=== PATIENT | female | born 1980 | race American Indian/Alaskan Native ===

== ENCOUNTER 2017-08-18 21:36 | Inpatient (IN) | payer OTHER ==
[2017-08-18 21:57] VITALS: BMI 36.7
[2017-08-18] MEDS ORDERED: Sodium Chloride 0.9% 1,000 ML IV STA (22:39)
[2017-08-18 23:19] LABS: URINE BILIRUBIN NEGATIVE (NEGATIVE); URINE BLOOD NEGATIVE (NEGATIVE); URINE GLUCOSE (UA) >=1000 mg/dL (NEGATIVE); URINE LEUKOCYTE ESTERASE NEGATIVE Leu/uL (NEGATIVE); URINE PROTEIN NEGATIVE mg/dL (<30 mg/dL); URINE UROBILINOGEN 0.2 E.U./dL (<1 E.U./dL)
[2017-08-18 23:24] LABS: URINE APPEARANCE CLEAR (CLEAR); URINE COLOR YELLOW (YELLOW)
--- NOTE | 2017-08-18 23:27 | ED PDOC ---
"Arrival/HPI - General Chief Complaint: Back Pain Time Seen by Provider: 08/18/17 22:38 Historian: Patient - History of Present Illness Narrative History of Present Illness (Text): 08/18/17 23:24 36yr old female presents today with left sided abdominal pain and back pain. pt states she was seen at urgent care 1 week ago with left flank pain and diagnosed with UTI. pt states she has been on macrobid without improvement. pt states over the past few days she has had increased pain to the left lower back and since last night developed pain to the left lower abdomen/pelvic region. pt denies dysuria, urinary frequency. no n/v/d/c. no dizziness or weakness. no cp or sob. pt denies vaginal discharge or bleeding. no other complaints. Past Medical History - Provider Review Nursing Documentation Reviewed: Yes - Travel History Have you recently traveled outside [place] w/in the past 3 mons?: No - Tetanus Immunization Tetanus Immunization: Unknown - Psychiatric Hx Substance Use: No - Surgical History Hx Eye Surgery: Yes Family/Social History - Physician Review Nursing Documentation Reviewed: Yes Family/Social History: Unknown Family HX Smoking Status: Never Smoked Hx Alcohol Use: Yes Frequency of alcohol use: Socially Hx Substance Use: No Allergies/Home Meds Allergies/Adverse Reactions: Allergies No Known Allergies Allergy (Verified 08/18/17 22:03) Home Medications: Home Meds Medication Instructions Recorded Confirmed No Known Home Med 08/18/17 08/18/17 Review of Systems - Review of Systems Constitutional: absent: Fatigue, Fevers Respiratory: absent: SOB, Cough Cardiovascular: absent: Chest Pain, Palpitations Gastrointestinal: Abdominal Pain. absent: Constipation, Diarrhea, Nausea, Vomiting Genitourinary Female: absent: Dysuria, Frequency, Hematuria, Vaginal Bleeding, Vaginal Discharge Musculoskeletal: Back Pain. absent: Arthralgias, Neck Pain Skin: absent: Rash, Pruritis Neurological: absent: Headache, Dizziness Psychiatric: absent: Anxiety, Depression Physical Exam Vital Signs Reviewed: Yes Vital Signs Temp Pulse Resp BP Pulse Ox 08/18/17 23:57 98.2 F 83 18 152/97 H 99 08/18/17 22:03 98.2 F 84 18 132/93 H 96 Temperature: Afebrile Blood Pressure: Normal Pulse: Regular Respiratory Rate: Normal Appearance: Positive for: Well-Appearing, Non-Toxic, Comfortable Pain Distress: None Mental Status: Positive for: Alert and Oriented X 3 - Systems Exam Head: Present: Atraumatic Mouth: Present: Moist Mucous Membranes Neck: Present: Normal Range of Motion Respiratory/Chest: Present: Clear to Auscultation, Good Air Exchange. No: Respiratory Distress, Accessory Muscle Use Cardiovascular: Present: Regular Rate and Rhythm, Normal S1, S2. No: Murmurs Abdomen: Present: Tenderness (minimal llq tenderness/ + left lower pelvic tenderness), Normal Bowel Sounds. No: Distention, Peritoneal Signs, Rebound, Guarding Back: Present: Normal Inspection. No: CVA Tenderness, Midline Tenderness, Paraspinal Tenderness Upper Extremity: Present: Normal ROM Lower Extremity: Present: Normal ROM Neurological: Present: GCS=15, Speech Normal Skin: Present: Warm, Dry, Normal Color. No: Rashes Psychiatric: Present: Alert, Oriented x 3 Medical Decision Making ED Course and Treatment: 08/18/17 23:27 Patient is nontoxic well appearing with stable vital signs presenting with left sided abdominal pain and back pain CBC wnl CMP glucose; 403 Lipase wnl Urinalysis + glucose UltrasoundFINDINGS: Uterus/cervix: Uterus measures 8.0 x 3.4 x 4.8 cm in size. No myometrial mass. Probable nabothian cysts. Endometrium: 0.7 cm in thickness. Right ovary: 3.6 x 4.7 x 3.1 cm in size. No mass. Normal flow. Left ovary: 4.2 x 2.7 x 3.0 cm in size. No mass. Normal flow. Free fluid: No significant free fluid. Bladder: Unremarkable as visualized. IMPRESSION: 1. No acute findings. 2. Non-acute findings are described above. EXAM: US Pelvis, Transvaginal CLINICAL HISTORY: 36 years old, female; Pain; Pelvic pain; Additional info: Left sided pelvic pain TECHNIQUE: DELLA WYNN | Final Radiology Report CONFIDENTIALITY STATEMENT This report is intended only for use by the referring physician, and only in accordance with law. If you received this in error, call [phone]. Page 2 of 2 Real-time transvaginal pelvic ultrasound (complete) with image documentation. Transvaginal imaging was used for better evaluation of the endometrium and adnexa. COMPARISON: No relevant prior studies available. FINDINGS: Uterus/cervix: Uterus measures 8.0 x 3.4 x 4.8 cm in size. No myometrial mass. Probable nabothian cysts. Endometrium: 0.7 cm in thickness. Right ovary: 3.6 x 4.7 x 3.1 cm in size. No mass. Normal flow. Left ovary: 4.2 x 2.7 x 3.0 cm in size. No mass. Normal flow. Free fluid: No significant free fluid. Bladder: Empty bladder which cannot be evaluated with this probe. IMPRESSION: 1. No acute findings. 2. Non-acute findings are described above. CAT scan: FINDINGS: Lower thorax: Large heterogeneous mass within left breast, incompletely imaged. Multiple noncalcified pulmonary nodules, largest measuring up to 1.7 cm. ABDOMEN: Liver: Fatty infiltration. Gallbladder and bile ducts: No calcified stones. No ductal dilation. Pancreas: No ductal dilation. No mass. Spleen: Mildly enlarged. Adrenals: No mass. Kidneys and ureters: No mass. No hydronephrosis. Stomach and bowel: Segmental areas of probable underdistention of LEFT colon. No definite mural thickening. No obstruction. Appendix: Normal caliber. No inflammation. PELVIS: Bladder: Apparent mild bladder wall thickening. Incomplete distention, limiting evaluation. Reproductive: Unremarkable as visualized. ABDOMEN and PELVIS: Intraperitoneal space: No significant fluid collection. No free air. Bones/joints: Few lytic lesions within visualized bones. No acute fracture. Soft tissues: Unremarkable. Vasculature: Unremarkable. No aneurysm. Lymph nodes: No pathologically enlarged lymph nodes. IMPRESSION: 1. Left breast mass, highly suspicious for primary malignancy. Clinical correlation and follow up are recommended. 2. Pulmonary nodules, indeterminate. Metastatic disease not excluded. Followup as clinically warranted. 3. Lytic bone lesions, indeterminate. DDX: Metastatic disease, multiple myeloma. Followup as clinically warranted. 4. Mild cystitis vs underdistention. Correlate with urinalysis. 5. Incidental/non-acute findings are described above. Patient reassessment: pt resting comfortably in er; Discussed all results with patient in depth. pt states she was diagnosed with breast cancer 1 year ago but never followed up. advised patient of concerns for lytic lesions and possible metastasis. case discussed with dr. noguera; accepts admission. all aspects of this case were discussed the attending of record. Impression: Abdominal pain, back pain, lytic lesion of back, breast MASS admit to med/surg - Lab Interpretations Lab Results: 08/18/17 23:58 08/18/17 23:58 Lab Results 08/18/17 23:58: WBC 6.8, RBC 4.63, Hgb 12.3, Hct 37.8, MCV 81.6, MCH 26.6, MCHC 32.5, RDW 13.1, Plt Count 325, MPV 10.1, Gran % 32.9 L, Lymph % (Auto) 57.7 H, Cole % (Auto) 5.9, Eos % (Auto) 3.1, Baso % (Auto) 0.4, Gran # 2.22, Lymph # ( Auto) 3.9 H, Cole # (Auto) 0.4, Eos # (Auto) 0.2, Baso # (Auto) 0.03 08/18/17 23:58: Sodium 138, Potassium 4.1, Chloride 98, Carbon Dioxide 31, Anion Gap 14, BUN 11, Creatinine 0.6 L, Est GFR ( Amer) > 60, Est GFR ( Non-Af Amer) > 60, Random Glucose 403 H*, Calcium 10.5, Total Bilirubin 0.4, AST 32, ALT 24, Alkaline Phosphatase 87, Total Protein 7.6, Albumin 3.9, Globulin 3.8, Albumin/Globulin Ratio 1.0 L, Lipase 147 08/18/17 23:14: Urine Color Yellow, Urine Appearance Clear, Urine pH 6.0, Ur Specific [place] 1.020, Urine Protein Negative, Urine Glucose (UA) >=1000, Urine Ketones Negative, Urine Blood Negative, Urine Nitrate Negative, Urine Bilirubin Negative, Urine Urobilinogen 0.2, Ur Leukocyte Esterase Negative - RAD Interpretation Radiology Orders: 08/18/17 22:38 ABD & PELVIS IV CONTRAST ONLY [CT] Stat TRANSVAGINAL [US] Stat - Medication Orders Current Medication Orders: Discontinued Medications Sodium Chloride (Sodium Chloride 0.9%) 1,000 mls @ 999 mls/hr IV .Q1H1M STA Stop: 08/18/17 23:39 Last Admin: 08/18/17 23:59 Dose: 999 mls/hr eMAR Start Stop Document 08/18/17 23:59 OCS (Rec: 08/19/17 00:00 OCS [id number]) Intravenous Solution Start Date 08/18/17 Start Time 23:59 End Date 08/19/17 End time 01:00 Total Infusion Time 61 Sodium Chloride (Sodium Chloride 0.9%) 1,000 mls @ 999 mls/hr IV .Q1H1M STA Stop: 08/19/17 01:50 Last Admin: 08/19/17 01:12 Dose: 999 mls/hr eMAR Start Stop Document 08/19/17 01:12 OCS (Rec: 08/19/17 01:12 OCS [id number]) Intravenous Solution Start Date 08/19/17 Start Time 01:12 End Date 08/19/17 End time 02:13 Total Infusion Time 61 Disposition/Present on Arrival - Present on Arrival Any Indicators Present on Arrival: No History of DVT/PE: No History of Uncontrolled Diabetes: No Urinary Catheter: No History of Decub. Ulcer: No History Surgical Site Infection Following: None - Disposition Have Diagnosis and Disposition been Completed?: Yes Diagnosis: Back pain, Lytic lesion of bone on x-ray, Breast mass, Hyperglycemia Disposition: HOSPITALIZED Disposition Time: 03:00 Patient Plan: Admission Condition: FAIR Referrals: PCP,NO [Primary Care Provider] - Follow up with primary Forms: DaisyBill (Malagasy)"
[2017-08-19 00:24] LABS: BASO # 0.03 K/mm3 (0.0-2.0); BASO % 0.4 % (0.0-3.0); EOS # 0.2 (0.0-0.7); EOS % 3.1 % (1.5-5.0); GRAN # 2.22 (1.4-6.5); GRAN % 32.9 % (50.0-68.0); HEMOGLOBIN 12.3 g/dL (12.0-16.0); LYMPH # 3.9 (1.2-3.4); LYMPH % 57.7 % (22.0-35.0); MEAN CELL VOLUME 81.6 fl (80.0-105.0); MEAN CORPUSCULAR HEMOGLOBIN 26.6 pg (25.0-35.0); MEAN CORPUSCULAR HGB CONC 32.5 g/dl (31.0-37.0); MEAN PLATELET VOLUME 10.1 fl (7.0-11.0); MONO # 0.4 (0.1-0.6); MONO % 5.9 % (1.0-6.0); RBC 4.63 10^6/uL (3.5-6.1); RED CELL DISTRIBUTION WIDTH 13.1 % (11.5-14.5); WHITE BLOOD COUNT 6.8 10^3/ul (4.5-11.0)
[2017-08-19 00:42] LABS: ALBUMIN 3.9 g/dL (3.0-4.8); ALT/SGPT 24 U/L (7-56); AST/SGOT 32 U/L (14-36); BLOOD UREA NITROGEN 11 mg/dL (7-21); CALCIUM 10.5 mg/dL (8.4-10.5); GFR AFRICAN-AMERICAN > 60; GFR NON-AFRICAN AMERICAN > 60; LIPASE 147 U/L (23-300)
[2017-08-19] MEDS ORDERED: Iohexol 350 MG/100 ML VIAL ONE (00:44)
--- NOTE | 2017-08-19 00:45 | US ---
EXAM: US Pelvis Complete, Transabdominal CLINICAL HISTORY: 36 years old, female; Pain; Pelvic pain; Additional info: Left sided pelvic pain TECHNIQUE: Real-time transabdominal pelvic ultrasound (complete) with image documentation. COMPARISON: No relevant prior studies available. FINDINGS: Uterus/cervix: Uterus measures 8.0 x 3.4 x 4.8 cm in size. No myometrial mass. Probable nabothian cysts. Endometrium: 0.7 cm in thickness. Right ovary: 3.6 x 4.7 x 3.1 cm in size. No mass. Normal flow. Left ovary: 4.2 x 2.7 x 3.0 cm in size. No mass. Normal flow. Free fluid: No significant free fluid. Bladder: Unremarkable as visualized. IMPRESSION: 1.No acute findings. 2.Non-acute findings are described above. EXAM: US Pelvis, Transvaginal CLINICAL HISTORY: 36 years old, female; Pain; Pelvic pain; Additional info: Left sided pelvic pain TECHNIQUE: Real-time transvaginal pelvic ultrasound (complete) with image documentation. Transvaginal imaging was used for better evaluation of the endometrium and adnexa. COMPARISON: No relevant prior studies available. FINDINGS: Uterus/cervix: Uterus measures 8.0 x 3.4 x 4.8 cm in size. No myometrial mass. Probable nabothian cysts. Endometrium: 0.7 cm in thickness. Right ovary: 3.6 x 4.7 x 3.1 cm in size. No mass. Normal flow. Left ovary: 4.2 x 2.7 x 3.0 cm in size. No mass. Normal flow. Free fluid: No significant free fluid. Bladder: Empty bladder which cannot be evaluated with this probe.
[2017-08-19] MEDS ORDERED: Sodium Chloride 0.9% 1,000 ML IV STA (00:50)
--- NOTE | 2017-08-19 01:23 | CT ---
EXAM: CT Abdomen and Pelvis With Intravenous Contrast CLINICAL HISTORY: 36 years old, female; Pain; Abdominal pain; Flank; Left lower quadrant (llq); Additional info: Llq abd pain TECHNIQUE: Axial computed tomography images of the abdomen and pelvis with intravenous contrast. All CT scans at this facility use one or more dose reduction techniques, viz.: automated exposure control; ma/kV adjustment per patient size (including targeted exams where dose is matched to indication; i.e. head); or iterative reconstruction technique. Coronal and sagittal reformatted images were created and reviewed. CONTRAST: 96 mL of OMNI 350 administered intravenously. COMPARISON: US - TRANSVAGINAL 2017-08-19 00:09 FINDINGS: Lower thorax: Large heterogeneous mass within left breast, incompletely imaged. Multiple noncalcified pulmonary nodules, largest measuring up to 1.7 cm. ABDOMEN: Liver: Fatty infiltration. Gallbladder and bile ducts: No calcified stones. No ductal dilation. Pancreas: No ductal dilation. No mass. Spleen: Mildly enlarged. Adrenals: No mass. Kidneys and ureters: No mass. No hydronephrosis. Stomach and bowel: Segmental areas of probable underdistention of LEFT colon. No definite mural thickening. No obstruction. Appendix: Normal caliber. No inflammation. PELVIS: Bladder: Apparent mild bladder wall thickening. Incomplete distention, limiting evaluation. Reproductive: Unremarkable as visualized. ABDOMEN and PELVIS: Intraperitoneal space: No significant fluid collection. No free air. Bones/joints: Few lytic lesions within visualized bones. No acute fracture. Soft tissues: Unremarkable. Vasculature: Unremarkable. No aneurysm. Lymph nodes: No pathologically enlarged lymph nodes. IMPRESSION: 1. Left breast mass, highly suspicious for primary malignancy. Clinical correlation and follow up are recommended. 2. Pulmonary nodules, indeterminate. Metastatic disease not excluded. Followup as clinically warranted. 3. Lytic bone lesions, indeterminate. DDX: Metastatic disease, multiple myeloma. Followup as clinically warranted. 4. Mild cystitis vs underdistention. Correlate with urinalysis. 5. Incidental/non-acute findings are described above.
[2017-08-19] MEDS ORDERED: Insulin Detemir 100 units/ml Vial (Levemir) SC ONE (03:15)
[2017-08-19] MEDS: Sodium Chloride 0.9% 1,000 ML IV SCH ×3 (04:30→21:58)
--- NOTE | 2017-08-19 05:35 | CP.PCM.HP ---
<Trevor Maguire - Last Filed: 08/19/17 06:26> History of Present Illness - History of Present Illness History of Present Illness: Trevor Maguire PGY 1 H&P Note for Hospitalist Service cc: back pain Ms. Mack is a 36 yo AAF with PMH of breast CA who presents w/ low back pain x1 week. The patient states that she was seen in urgent care center and told she had a UTI and prescribed macrobid with no improvement. she states that her pain is at the left flank and radiating to her LLQ of abdomen. It is constant and worse with twisting. she denies any trauma. Regarding her cancer, she states that she was biopsied and confirmed to be malignant @ [place], [place] but she is unsure of the doctor's name. she was told that her tumor is slow growing and she did not pursue any treatment at that time. she denies any breast pain. her menstrual periods are irregular. she denies any weight loss, fevers/chills, chest pain, n/v/d or any changes in bowel/urinary habits. 12- pt ROS was reviewed and is otherwise unremarkable. PMD: none PMH: as above PSH: eye surgery for cyst Meds: none SHx: denies tobacco/ETOH/illicit substance abuse FHx: ovarian CA in maternal aunts Present on Admission - Present on Admission Any Indicators Present on Admission: No Review of Systems - Review of Systems All systems: reviewed and no additional remarkable complaints except (as per HPI ) Past Patient History - Tetanus Immunizations Tetanus Immunization: Unknown - Past Social History Smoking Status: Never Smoked Alcohol: None Drugs: Denies - CARDIAC Hx Cardiac Disorders: No - PULMONARY Hx Respiratory Disorders: No - NEUROLOGICAL Hx Neurological Disorder: No - HEENT Hx HEENT Problems: No - RENAL Hx Chronic Kidney Disease: No - ENDOCRINE/METABOLIC Hx Endocrine Disorders: No - HEMATOLOGICAL/ONCOLOGICAL Hx Cancer: Yes - INTEGUMENTARY Hx Dermatological Problems: No - MUSCULOSKELETAL/RHEUMATOLOGICAL Hx Musculoskeletal Disorders: No - GASTROINTESTINAL Hx Gastrointestinal Disorders: No - GENITOURINARY/GYNECOLOGICAL Hx Genitourinary Disorders: No - PSYCHIATRIC Hx Psychophysiologic Disorder: No Hx Substance Use: No - SURGICAL HISTORY Hx Surgeries: Yes Hx Eye Surgery: Yes Meds Allergies/Adverse Reactions: Allergies Allergy/AdvReac Type Severity Reaction Status Date / Time No Known Allergies Allergy Verified 08/18/17 22:03 Physical Exam - Constitutional Appears: Well, Non-toxic, No Acute Distress - Head Exam Head Exam: NORMAL INSPECTION - Eye Exam Eye Exam: EOMI, Normal appearance, PERRL - ENT Exam ENT Exam: Mucous Membranes Moist - Neck Exam Neck exam: Positive for: Normal Inspection - Respiratory Exam Respiratory Exam: NORMAL BREATHING PATTERN. absent: Rales, Rhonchi, Wheezes - Cardiovascular Exam Cardiovascular Exam: RRR, +S1, +S2 - GI/Abdominal Exam GI & Abdominal Exam: Soft. absent: Distended, Tenderness - Extremities Exam Additional comments: L Axillary lymph nodes appreciated breast mass noted - Back Exam Back exam: NORMAL INSPECTION. absent: paraspinal tenderness, vertebral tenderness - Neurological Exam Neurological exam: Alert, Oriented x3 - Psychiatric Exam Psychiatric exam: Normal Affect, Normal Mood - Skin Skin Exam: Warm Results - Vital Signs Recent Vital Signs: Last Vital Signs Temp 98.2 F 08/18/17 23:57 Pulse 83 08/18/17 23:57 Resp 18 08/18/17 23:57 BP 152/97 H 08/18/17 23:57 Pulse Ox 99 08/18/17 23:57 - Labs Result Diagrams: 08/19/17 05:30 08/19/17 05:30 Assessment & Plan - Assessment and Plan (Free Text) Assessment: 36 yo AAF with PMH of breast CA who presents w/ low back pain x1 week, found to have multiple lytic fractures. Plan: 1. Breast CA w/ possible mets given lytic lesions and lymphadenopathy - Oncology consulted, further recs appreciated - LDH, ESR and retic count ordered to eval for multiple myeloma - smear should be ordered 2. Hypergylcemia - 10units Levemir ordered - NS @ 150 - Accuchecks ACHS - ISS ACHS - A1C ordered 3. Hypomangesemia - repleted - f/u daily labs PTX/Heparin and SCDs for GI/DVT ppx Patient was seen, examined and discussed with Dr. Evette Maguire PGY1 <Gracia Alas - Last Filed: 08/19/17 06:49> Results - Vital Signs Recent Vital Signs: Last Vital Signs Temp 98.0 F 08/19/17 04:16 Pulse 83 08/19/17 04:16 Resp 18 08/19/17 04:16 BP 132/73 03/14/18 04:16 Pulse Ox 95 08/19/17 04:16 - Labs Result Diagrams: 08/19/17 05:30 08/19/17 05:30 Labs: Laboratory Results - last 24 hr 08/19/17 08/19/17 08/19/17 05:30 05:30 05:30 WBC 5.6 RBC 4.41 Hgb 11.8 L Hct 35.9 L MCV 81.4 MCH 26.8 MCHC 32.9 RDW 13.0 Plt Count 300 MPV 9.6 Retic Count 1.64 H PT 14.1 H INR 1.22 H Sodium 140 Potassium 4.3 Chloride 103 Carbon Dioxide 27 Anion Gap 13 BUN 9 Creatinine 0.6 L Est GFR ( Amer) > 60 Est GFR (Non-Af Amer) > 60 Random Glucose 290 H Uric Acid 3.6 Calcium 9.9 Phosphorus 4.1 Magnesium 1.6 L Total Bilirubin 0.2 AST 34 ALT 28 Alkaline Phosphatase 76 Lactate Dehydrogenase 340 Total Protein 7.1 Albumin 3.6 Globulin 3.5 Albumin/Globulin Ratio 1.0 L Triglycerides 162 H Cholesterol 156 LDL Cholesterol Direct 99 HDL Cholesterol 28 L Attending/Attestation - Attestation I have personally seen and examined this patient.: Yes I have fully participated in the care of the patient.: Yes I have reviewed all pertinent clinical information: Yes Notes (Text): 08/19/17 06:42 Examination of the L breast reveals a hard mass,about 6" diameter. Lymh nodes in the L breast are matted and firm. Agree with documentation and orders placed. 08/19/17 06:48
[2017-08-19 05:46] LABS: HEMOGLOBIN 11.8 g/dL (12.0-16.0); MEAN CELL VOLUME 81.4 fl (80.0-105.0); MEAN CORPUSCULAR HEMOGLOBIN 26.8 pg (25.0-35.0); MEAN CORPUSCULAR HGB CONC 32.9 g/dl (31.0-37.0); MEAN PLATELET VOLUME 9.6 fl (7.0-11.0); PLATELET COUNT 300 10^3/uL (120.0-450.0); RBC 4.41 10^6/uL (3.5-6.1); WHITE BLOOD COUNT 5.6 10^3/ul (4.5-11.0)
[2017-08-19 06:00] LABS: ALBUMIN 3.6 g/dL (3.0-4.8); ALT/SGPT 28 U/L (7-56); AST/SGOT 34 U/L (14-36); BLOOD UREA NITROGEN 9 mg/dL (7-21); CALCIUM 9.9 mg/dL (8.4-10.5); GFR AFRICAN-AMERICAN > 60; GFR NON-AFRICAN AMERICAN > 60; HDL CHOLESTEROL 28 mg/dL (29-60); URIC ACID 3.6 mg/dL (2.5-6.2)
[2017-08-19 06:04] LABS: INR 1.22 (0.93-1.08); PROTHROMBIN TIME 14.1 SECONDS (9.4-12.5)
[2017-08-19] MEDS ORDERED: Magnesium Oxide 400 mg Tab UD PO STA (06:06)
[2017-08-19 06:10] LABS: LDL CHOLESTEROL 99 mg/dL (0-129)
[2017-08-19] MEDS: Pantoprazole 40 mg EC Tab PO SCH (06:19)
[2017-08-19] MEDS: Insulin Lispro (humaLOG) MEDIUM Coverage SC SCH ×4 (08:43→21:57)
[2017-08-19 09:51] VITALS: RESP 20
[2017-08-20] MEDS: Sodium Chloride 0.9% 1,000 ML IV SCH ×2 (02:34→10:37)
[2017-08-20] MEDS ORDERED: Oxycodone/Acetaminophen 5/325 mg Tab PO STA (04:46)
[2017-08-20] MEDS: Pantoprazole 40 mg EC Tab PO SCH (05:01)
[2017-08-20 06:48] LABS: INR 1.29 (0.93-1.08); PROTHROMBIN TIME 14.9 SECONDS (9.4-12.5)
[2017-08-20 06:54] LABS: HEMOGLOBIN 11.4 g/dL (12.0-16.0); MEAN CELL VOLUME 81.8 fl (80.0-105.0); MEAN CORPUSCULAR HEMOGLOBIN 26.6 pg (25.0-35.0); MEAN CORPUSCULAR HGB CONC 32.5 g/dl (31.0-37.0); RBC 4.29 10^6/uL (3.5-6.1); RED CELL DISTRIBUTION WIDTH 13.2 % (11.5-14.5); WHITE BLOOD COUNT 5.4 10^3/ul (4.5-11.0)
[2017-08-20 07:10] LABS: ALB/GLOB RATIO 0.9 (1.1-1.8); ALBUMIN 3.1 g/dL (3.0-4.8); ALT/SGPT 27 U/L (7-56); AST/SGOT 39 U/L (14-36); BLOOD UREA NITROGEN 8 mg/dL (7-21); CALCIUM 9.3 mg/dL (8.4-10.5); GFR AFRICAN-AMERICAN > 60; GFR NON-AFRICAN AMERICAN > 60
[2017-08-20 08:31] VITALS: BP 144/66; PULSE 64; TEMP 97.7; O2SAT 99
[2017-08-20] MEDS: Insulin Lispro (humaLOG) MEDIUM Coverage SC SCH ×2 (08:44→14:22)
--- NOTE | 2017-08-20 11:00 | CP.PCM.DIS ---
<Christina Melchor - Last Filed: 08/20/17 10:43> Provider - Provider Date of Admission: 08/19/17 04:50 Attending physician: Rose Chinchilla MD Primary care physician: NO PRIMARY CARE PROVIDER Consults: Hem/Onc: Tracie IR: Ifeanyi Time Spent in preparation of Discharge (in minutes): 45 Diagnosis - Discharge Diagnosis (1) Breast cancer Status: Chronic Priority: High (2) Diabetes Status: Acute Priority: High (3) Lytic lesion of bone on x-ray Status: Acute Priority: High Hospital Course - Lab Results Lab Results: Most Recent Lab Values WBC 5.4 10^3/ul (4.5-11.0) 08/20/17 05:30 RBC 4.29 10^6/uL (3.5-6.1) 08/20/17 05:30 Hgb 11.4 g/dL (12.0-16.0) L 08/20/17 05:30 Hct 35.1 % (36.0-48.0) L 08/20/17 05:30 MCV 81.8 fl (80.0-105.0) 08/20/17 05:30 MCH 26.6 pg (25.0-35.0) 08/20/17 05:30 MCHC 32.5 g/dl (31.0-37.0) 08/20/17 05:30 RDW 13.2 % (11.5-14.5) 08/20/17 05:30 Plt Count 293 10^3/uL (120.0-450.0) 08/20/17 05:30 MPV 10.0 fl (7.0-11.0) 08/20/17 05:30 Gran % 32.9 % (50.0-68.0) L 08/18/17 23:58 Lymph % (Auto) 57.7 % (22.0-35.0) H 08/18/17 23:58 Edmunds % (Auto) 5.9 % (1.0-6.0) 08/18/17 23:58 Eos % (Auto) 3.1 % (1.5-5.0) 08/18/17 23:58 Baso % (Auto) 0.4 % (0.0-3.0) 08/18/17 23:58 Gran # 2.22 (1.4-6.5) 08/18/17 23:58 Lymph # (Auto) 3.9 (1.2-3.4) H 08/18/17 23:58 Edmunds # (Auto) 0.4 (0.1-0.6) 08/18/17 23:58 Eos # (Auto) 0.2 (0.0-0.7) 08/18/17 23:58 Baso # (Auto) 0.03 K/mm3 (0.0-2.0) 08/18/17 23:58 ESR 52 mm/hr (0.0-20.0) H 08/19/17 05:30 Retic Count 1.64 % (0.5-1.5) H 08/19/17 05:30 PT 14.9 SECONDS (9.4-12.5) H 08/20/17 05:30 INR 1.29 (0.93-1.08) H 08/20/17 05:30 Sodium 140 mmol/L (132-148) 08/20/17 05:30 Potassium 3.7 mmol/L (3.6-5.0) 08/20/17 05:30 Chloride 104 mmol/L (98-107) 08/20/17 05:30 Carbon Dioxide 28 mmol/L (21-33) 08/20/17 05:30 Anion Gap 12 (10-20) 08/20/17 05:30 BUN 8 mg/dL (7-21) 08/20/17 05:30 Creatinine 0.6 mg/dl (0.7-1.2) L 08/20/17 05:30 Est GFR ( Amer) > 60 08/20/17 05:30 Est GFR (Non-Af Amer) > 60 08/20/17 05:30 POC Glucose (mg/dL) 171 mg/dL (65-110) H 08/19/17 21:15 Random Glucose 186 mg/dL (70-110) H 08/20/17 05:30 Hemoglobin A1c 14.2 % (4.2-6.5) H 08/19/17 05:30 Uric Acid 3.6 mg/dL (2.5-6.2) 08/19/17 05:30 Calcium 9.3 mg/dL (8.4-10.5) 08/20/17 05:30 Phosphorus 4.1 mg/dL (2.5-4.5) 08/19/17 05:30 Magnesium 1.6 mg/dL (1.7-2.2) L 08/19/17 05:30 Total Bilirubin 0.4 mg/dL (0.2-1.3) 08/20/17 05:30 AST 39 U/L (14-36) H 08/20/17 05:30 ALT 27 U/L (7-56) 08/20/17 05:30 Alkaline Phosphatase 76 U/L (38-126) 08/20/17 05:30 Lactate Dehydrogenase 340 U/L (333-699) 08/19/17 05:30 Total Protein 6.5 g/dL (5.8-8.3) 08/20/17 05:30 Albumin 3.1 g/dL (3.0-4.8) 08/20/17 05:30 Globulin 3.4 gm/dL 08/20/17 05:30 Albumin/Globulin Ratio 0.9 (1.1-1.8) L 08/20/17 05:30 Triglycerides 162 mg/dL (35-160) H 08/19/17 05:30 Cholesterol 156 mg/dL (130-200) 08/19/17 05:30 LDL Cholesterol Direct 99 mg/dL (0-129) 08/19/17 05:30 HDL Cholesterol 28 mg/dL (29-60) L 08/19/17 05:30 Lipase 147 U/L (23-300) 08/18/17 23:58 Urine Color Yellow (YELLOW) 08/18/17 23:14 Urine Appearance Clear (CLEAR) 08/18/17 23:14 Urine pH 6.0 (4.7-8.0) 08/18/17 23:14 Ur Specific Delmar 1.020 (1.005-1.035) 08/18/17 23:14 Urine Protein Negative mg/dL (<30 mg/dL) 08/18/17 23:14 Urine Glucose (UA) >=1000 mg/dL (NEGATIVE) 08/18/17 23:14 Urine Ketones Negative mg/dL (NEGATIVE) 08/18/17 23:14 Urine Blood Negative (NEGATIVE) 08/18/17 23:14 Urine Nitrate Negative (NEGATIVE) 08/18/17 23:14 Urine Bilirubin Negative (NEGATIVE) 08/18/17 23:14 Urine Urobilinogen 0.2 E.U./dL (<1 E.U./dL) 08/18/17 23:14 Ur Leukocyte Esterase Negative Maninder/uL (NEGATIVE) 08/18/17 23:14 - Hospital Course Hospital Course: Ms. Mack is a 36 yo AAF with PMH of breast CA (2013 - no treatment) who initially presented w/ low back pain x1 week. Patient had CT A/P that was notable for breast mass, pulmonary nodules, and multiple lytic bone lesions, consistent with metastic disease. Patient had previously been diagnosed with breast cancer, based on a biopsy done at [facility] in [place], [place], but she did not pursue follow up or treatment for her disease. Records were obtained from that hospital, which showed invasive ductal CA, ER+, OH+, HER2-. Patient was seen by Dr. Hodges and will follow up with him for further management. Patient was also noted to be diabetic, with HbA1c 14. Insulin therapy was discussed and patient agreed with and accepted the plan. Today, patient reports feeling well overall, reports that back pain has significantly improved. She expresses understanding of her diagnoses, and the importance of follow up with the oncologist as well as establishing care with a primary care doctor. She denies any chest pain, shortness of breath, fever, chills, nausea, vomiting, diarrhea, constipation. She was given prescriptions for hew new medications, and instructions on follow up. All questions were answered to her satisfaction and she was discharged to home. Discharge Exam - Head Exam Head Exam: NORMAL INSPECTION - Eye Exam Eye Exam: EOMI, Normal appearance, PERRL - ENT Exam ENT Exam: Mucous Membranes Moist - Neck Exam Neck exam: Normal Inspection - Respiratory Exam Respiratory Exam: Clear to PA & Lateral, NORMAL BREATHING PATTERN - Cardiovascular Exam Cardiovascular Exam: RRR, +S1, +S2 - GI/Abdominal Exam GI & Abdominal Exam: Normal Bowel Sounds, Soft. absent: Tenderness - Extremities Exam Extremities exam: calf tenderness, pedal edema - Neurological Exam Neurological exam: Alert, CN II-XII Intact, Oriented x3 - Psychiatric Exam Psychiatric exam: Normal Affect, Normal Mood - Skin Skin Exam: Dry, Intact Discharge Plan - Discharge Medications Prescriptions: Blood-Glucose Meter [Blood Glucose Meter] 1 each MC ONCE #1 each Glucose, Blood Test [Blood Glucose Test Strips] 1 packet XX AMHS #1 dev Insulin Aspart/Insulin Aspar [Novolog Mix 70/30 (70/30 units/ml)] 5 units SC AMHS #300 unit Lancets 1 each AMHS #60 each - Follow Up Plan Condition: FAIR Disposition: HOME/ ROUTINE Instructions: Acute Pain, Adult (DC), Hyperglycemia, Adult (DC) Additional Instructions: 1. Use the insulin as described, 5 units in the morning and 5 units at night. Check your blood sugar at least twice daily, including in the morning before breakfast 2. Follow up with Dr. Hodges within one week for further treatment 3. Follow up with a PCP of your choice, or the [facility] within one week 4. For any new or worsening concerns, return to the ER Referrals: PCP,LOGAN [Primary Care Provider] - Tony Hodges MD [Staff Provider] - <Rose Chinchilla - Last Filed: 08/20/17 12:53> Provider - Provider Date of Admission: 08/19/17 04:50 Attending physician: Rose Chinchilla MD Primary care physician: LOGAN PRIMARY CARE PROVIDER Hospital Course - Lab Results Lab Results: Most Recent Lab Values WBC 5.4 10^3/ul (4.5-11.0) 08/20/17 05:30 RBC 4.29 10^6/uL (3.5-6.1) 08/20/17 05:30 Hgb 11.4 g/dL (12.0-16.0) L 08/20/17 05:30 Hct 35.1 % (36.0-48.0) L 08/20/17 05:30 MCV 81.8 fl (80.0-105.0) 08/20/17 05:30 MCH 26.6 pg (25.0-35.0) 08/20/17 05:30 MCHC 32.5 g/dl (31.0-37.0) 08/20/17 05:30 RDW 13.2 % (11.5-14.5) 08/20/17 05:30 Plt Count 293 10^3/uL (120.0-450.0) 08/20/17 05:30 MPV 10.0 fl (7.0-11.0) 08/20/17 05:30 Gran % 32.9 % (50.0-68.0) L 08/18/17 23:58 Lymph % (Auto) 57.7 % (22.0-35.0) H 08/18/17 23:58 Edmunds % (Auto) 5.9 % (1.0-6.0) 08/18/17 23:58 Eos % (Auto) 3.1 % (1.5-5.0) 08/18/17 23:58 Baso % (Auto) 0.4 % (0.0-3.0) 08/18/17 23:58 Gran # 2.22 (1.4-6.5) 08/18/17 23:58 Lymph # (Auto) 3.9 (1.2-3.4) H 08/18/17 23:58 Edmunds # (Auto) 0.4 (0.1-0.6) 08/18/17 23:58 Eos # (Auto) 0.2 (0.0-0.7) 08/18/17 23:58 Baso # (Auto) 0.03 K/mm3 (0.0-2.0) 08/18/17 23:58 ESR 52 mm/hr (0.0-20.0) H 08/19/17 05:30 Retic Count 1.64 % (0.5-1.5) H 08/19/17 05:30 PT 14.9 SECONDS (9.4-12.5) H 08/20/17 05:30 INR 1.29 (0.93-1.08) H 08/20/17 05:30 Sodium 140 mmol/L (132-148) 08/20/17 05:30 Potassium 3.7 mmol/L (3.6-5.0) 08/20/17 05:30 Chloride 104 mmol/L (98-107) 08/20/17 05:30 Carbon Dioxide 28 mmol/L (21-33) 08/20/17 05:30 Anion Gap 12 (10-20) 08/20/17 05:30 BUN 8 mg/dL (7-21) 08/20/17 05:30 Creatinine 0.6 mg/dl (0.7-1.2) L 08/20/17 05:30 Est GFR ( Amer) > 60 08/20/17 05:30 Est GFR (Non-Af Amer) > 60 08/20/17 05:30 POC Glucose (mg/dL) 169 mg/dL (65-110) H 08/20/17 11:23 Random Glucose 186 mg/dL (70-110) H 08/20/17 05:30 Hemoglobin A1c 14.2 % (4.2-6.5) H 08/19/17 05:30 Uric Acid 3.6 mg/dL (2.5-6.2) 08/19/17 05:30 Calcium 9.3 mg/dL (8.4-10.5) 08/20/17 05:30 Phosphorus 4.1 mg/dL (2.5-4.5) 08/19/17 05:30 Magnesium 1.6 mg/dL (1.7-2.2) L 08/19/17 05:30 Total Bilirubin 0.4 mg/dL (0.2-1.3) 08/20/17 05:30 AST 39 U/L (14-36) H 08/20/17 05:30 ALT 27 U/L (7-56) 08/20/17 05:30 Alkaline Phosphatase 76 U/L (38-126) 08/20/17 05:30 Lactate Dehydrogenase 340 U/L (333-699) 08/19/17 05:30 Total Protein 6.5 g/dL (5.8-8.3) 08/20/17 05:30 Albumin 3.1 g/dL (3.0-4.8) 08/20/17 05:30 Globulin 3.4 gm/dL 08/20/17 05:30 Albumin/Globulin Ratio 0.9 (1.1-1.8) L 08/20/17 05:30 Triglycerides 162 mg/dL (35-160) H 08/19/17 05:30 Cholesterol 156 mg/dL (130-200) 08/19/17 05:30 LDL Cholesterol Direct 99 mg/dL (0-129) 08/19/17 05:30 HDL Cholesterol 28 mg/dL (29-60) L 08/19/17 05:30 Lipase 147 U/L (23-300) 08/18/17 23:58 Urine Color Yellow (YELLOW) 08/18/17 23:14 Urine Appearance Clear (CLEAR) 08/18/17 23:14 Urine pH 6.0 (4.7-8.0) 08/18/17 23:14 Ur Specific Delmar 1.020 (1.005-1.035) 08/18/17 23:14 Urine Protein Negative mg/dL (<30 mg/dL) 08/18/17 23:14 Urine Glucose (UA) >=1000 mg/dL (NEGATIVE) 08/18/17 23:14 Urine Ketones Negative mg/dL (NEGATIVE) 08/18/17 23:14 Urine Blood Negative (NEGATIVE) 08/18/17 23:14 Urine Nitrate Negative (NEGATIVE) 08/18/17 23:14 Urine Bilirubin Negative (NEGATIVE) 08/18/17 23:14 Urine Urobilinogen 0.2 E.U./dL (<1 E.U./dL) 08/18/17 23:14 Ur Leukocyte Esterase Negative Maninder/uL (NEGATIVE) 08/18/17 23:14 Attending/Attestation - Attestation I have personally seen and examined this patient.: Yes I have fully participated in the care of the patient.: Yes I have reviewed all pertinent clinical information, including history, physical exam and plan: Yes Notes (Text): 08/20/17 12:48 36 year old female with past medical history of breast cancer and diabetes who presented with complaint of abdominal and back pain. CT abd/pelvis was done which showed breast mass, pulmonary nodules and multiple lytic bone lesions. Patient admitted to history of breast cancer as above but never followed up with doctor or oncologist. She was offered bone biopsy by IR which she refused. She was seen by oncology whom she is agreeable to follow up with as outpatient. She was started on insulin for diabetes. She was counselled on medication compliance. Patient is discharged home to follow up at [facility] or pmd of choice. Follow up with oncologist, Dr. Hodges for further workup and treatment. Counselled on importance of medication and outpatient follow up compliance. Rose Chinchilla MD Hospitalist.
--- NOTE | 2017-08-20 16:57 | CP.PCM.CON ---
History of Present Illness - History of Present Illness History of Present Illness: 36 year old female with a history of untreated breast cancer diagnosed about 3- 4 years ago at [facility], admitted with back pain, found to have bone and lung lesions concerning for metastatic disease. The patient notes she deferred medical treatment for a more homeopathic course of care for her cancer. She notes to her breast mass increasing in size in the last 2-3 months but has not had breast pain. She does note to increasing lower back pain but denies wekaness. She remains active and is working daily. Past medical history: Breast cancer Past surgical history: None Family history: 2nd Aunt from mothers side had breast cancer Social history: Denies tobacco, alcohol, and illicit drug use. Allergies: NKA Review of systems: All remaining review of systems including HEENT, cardiovacsular, respiratory, gastrointestinal, genitourinary, musculoskeletal, dermatologic, neurologic, and psychiatric are negative unless mentioned in the HPI. Past Patient History - Tetanus Immunizations Tetanus Immunization: Unknown - Past Social History Smoking Status: Never Smoked - CARDIAC Hx Cardiac Disorders: No - PULMONARY Hx Respiratory Disorders: No - NEUROLOGICAL Hx Neurological Disorder: No - HEENT Hx HEENT Problems: No - RENAL Hx Chronic Kidney Disease: No - ENDOCRINE/METABOLIC Hx Diabetes Mellitus Type 1: Yes - HEMATOLOGICAL/ONCOLOGICAL Hx Blood Disorders: No - INTEGUMENTARY Hx Dermatological Problems: No - MUSCULOSKELETAL/RHEUMATOLOGICAL Hx Musculoskeletal Disorders: No - GASTROINTESTINAL Hx Gastrointestinal Disorders: No - GENITOURINARY/GYNECOLOGICAL Hx Genitourinary Disorders: No - PSYCHIATRIC Hx Psychophysiologic Disorder: No - SURGICAL HISTORY Hx Surgeries: Yes (EYE SURGERY) Meds Home Medications: Home Medication List Medication Instructions Recorded Confirmed Type Blood-Glucose Meter [Blood Glucose 1 each ONCE #1 each 08/20/17 Rx Meter] Glucose, Blood Test [Blood Glucose 1 packet XX AMHS #1 dev 08/20/17 Rx Test Strips] Insulin Aspart/Insulin Aspar 5 units SC AMHS #300 unit 08/20/17 Rx [Novolog Mix 70/30 (70/30 units/ml)] Lancets 1 each AMHS #60 each 08/20/17 Rx Allergies/Adverse Reactions: Allergies Allergy/AdvReac Type Severity Reaction Status Date / Time No Known Allergies Allergy Verified 08/18/17 22:03 Physical Exam - Head Exam Head Exam: ATRAUMATIC - Eye Exam Eye Exam: Normal appearance - ENT Exam ENT Exam: Mucous Membranes Dry - Respiratory Exam Respiratory Exam: NORMAL BREATHING PATTERN - Cardiovascular Exam Cardiovascular Exam: +S1, +S2 - GI/Abdominal Exam GI & Abdominal Exam: Normal Bowel Sounds - Extremities Exam Extremities exam: Positive for: normal inspection - Neurological Exam Neurological exam: Oriented x3 - Psychiatric Exam Psychiatric exam: Normal Affect, Normal Mood - Skin Skin Exam: Warm Results - Vital Signs Recent Vital Signs: Last Vital Signs Temp 97.7 F 08/20/17 08:30 Pulse 64 08/20/17 08:30 Resp 20 08/20/17 08:30 BP 144/66 08/20/17 08:30 Pulse Ox 99 08/20/17 08:30 - Labs Result Diagrams: 08/20/17 05:30 08/20/17 05:30 Labs: Laboratory Results - last 24 hr 08/19/17 08/19/17 08/20/17 16:38 21:15 05:30 WBC 5.4 RBC 4.29 Hgb 11.4 L Hct 35.1 L MCV 81.8 MCH 26.6 MCHC 32.5 RDW 13.2 Plt Count 293 MPV 10.0 PT INR Sodium Potassium Chloride Carbon Dioxide Anion Gap BUN Creatinine Est GFR ( Amer) Est GFR (Non-Af Amer) POC Glucose (mg/dL) 156 H 171 H Random Glucose Calcium Total Bilirubin AST ALT Alkaline Phosphatase Total Protein Albumin Globulin Albumin/Globulin Ratio 08/20/17 08/20/17 08/20/17 05:30 05:30 11:23 WBC RBC Hgb Hct MCV MCH MCHC RDW Plt Count MPV PT 14.9 H INR 1.29 H Sodium 140 Potassium 3.7 Chloride 104 Carbon Dioxide 28 Anion Gap 12 BUN 8 Creatinine 0.6 L Est GFR ( Amer) > 60 Est GFR (Non-Af Amer) > 60 POC Glucose (mg/dL) 169 H Random Glucose 186 H Calcium 9.3 Total Bilirubin 0.4 AST 39 H ALT 27 Alkaline Phosphatase 76 Total Protein 6.5 Albumin 3.1 Globulin 3.4 Albumin/Globulin Ratio 0.9 L Assessment & Plan (1) Breast cancer Assessment and Plan: appears metastatic to the lung and bones by imaging pt deferred bone lesion biopsy will need to obtain breast biopsy done 3 years ago if confirmed malignancy, will refer to radiation oncology for palliative radiotherapy for pain further treatment recommendations based on pathology, outpatient f/u Thank you for this interesting consult. Status: Chronic Priority: High
== END 2017-08-20 15:27 | disposition home or self-care (01) | DRG 274 ==
LOC: ED 21:36 → ERH 08-19 04:50 → 3RNO 08-19 06:30
PROVIDERS: ADMIT Internal Medicine; ATTEND Internal Medicine
DX: C50.912 Malignant neoplasm of unspecified site of left female breast (principal); E11.65 Type 2 diabetes mellitus with hyperglycemia; Z17.0 Estrogen receptor positive status [ER+]; Z80.3 Family history of malignant neoplasm of breast